=== PATIENT | female | born 1950 | race Caucasian/White ===

== ENCOUNTER 2016-12-18 13:20 | Inpatient (IN) | payer MEDICAID ==
[~2016-12-18] VITALS: Ht 167.6 cm; Wt 73.9 kg
--- NOTE | ~2016-12-18 | PR ---
[place], [place] PROGRESS NOTE NAME: TRELL TRISTAN UNIT #: [id number] ROOM: 310 DOCTOR: YARY PARTIDA BIRTHDATE: [birth year] DOS: 12/22/2016 CHIEF COMPLAINT: This morning "I had an ____ dream last night." SUMMARY OF THE VISIT: She was seen in the dining room. She is pleasant, cooperative, walking with her walker. She is alert and oriented x 3. She reports that she slept well. She did redirect easily when she was told that conversation would be inappropriate in the setting that we were in. PLAN: We will take this weekend to determine whether or not this is behavior versus psychosis. She was moved from the assisted portion of the facility into the assisted living portion and her ____ interest is in the assisted part and she has made several comments about not minding going back to the assisted part of the facility. The plan is to discharge her on Sunday or Sunday. We will continue to engage her in individual and snowden milieu and discharge her back to the least restrictive environment whenever she is psychiatrically stable. Yary Partida NP CM:ROSELINE 6 10 YARY PARTIDA 12/22/162209 interface
--- NOTE | ~2016-12-18 | WRIGHTHP ---
[place], [place] PATIENT HISTORY AND PHYSICAL EXAM NAME: TRELL TRISTAN [facility] #: [id number] UNIT #: [id number] ROOM: 310 DOCTOR: MIQUEL CASSIDY MD BIRTHDATE: [birth year] DOS: 12/18/2016 CHIEF COMPLAINT: "I have just been so depressed and I have been having nightmares." HISTORY OF PRESENT ILLNESS: This is a 66-year-old white female who resides at [facility]. The patient reports that for the last several weeks prior to admission, she was having worsening depression with worsening posttraumatic stress disorder symptoms. 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 She wakes up to start the day very fatigued and tired and has not been able to attend to her ADLs. Her appetite has fluctuated. She also was having fleeting suicidal thoughts and has done things such as purposely fall to the ground, hoping that she would hit her head and hurt herself. She has also been punching herself in the leg, hoping again she would hurt herself. The patient is admitted now to rule out organic factors to attempt to stabilize on medication and to engage in individual and snowden milieu activities. PAST MEDICAL HISTORY: Remarkable for asthma, , COPD, coronary artery disease, GERD, hyperlipidemia, hypertension, iron deficiency anemia, urinary incontinence, vitamin D deficiency and a history of a pulmonary embolus. MENTAL STATUS: The patient is alert and oriented to person, place, and time. Mood is overwhelmingly depressed with anxious overtones. She endorses multiple neurovegetative symptoms including suicidal thoughts. She denies any hypomania or kim. There are no auditory or visual hallucinations. No delusions, no paranoia. Short, intermediate, and long-term memory are relatively fully intact. DIAGNOSIS: Major depression, recurrent, severe; posttraumatic stress disorder and panic disorder. PLAN: I will go ahead and finally discontinue her Effexor in lieu of Remeron 15 mg at nighttime. I will increase her Mysoline to 50 mg in the morning and 100 mg at night to decrease some of the choreiform movements as well as to impact positively on her anxiety. I will increase her Geodon to 20 mg in the morning and 60 mg at night also to decrease her mood lability and to decrease the panic attacks and the posttraumatic stress disorder symptoms. Routine screening examination show her to have a low vitamin D level, so vitamin D 2000 international units daily was started. Additionally, her vitamin B12 is very low therapeutic. I will go ahead and treat any way with vitamin B12 injection 1000 mcg IM today. We will have her engage in individual and snowden milieu activities with the ultimate plan to return to [facility] when psychiatrically stable. [place], [place] PATIENT HISTORY AND PHYSICAL EXAM NAME: TRELL TRISTAN UNIT #: [id number] ROOM: 310 DOCTOR: MIQUEL CASSIDY MD BIRTHDATE: [birth year] MIQUEL CASSIDY MD CM:HISPHYS:PATIENT HISTORY AND PHYSICAL EXAMINATION 8 MIQUEL CASSIDY MD 12/19/16917 interface
--- NOTE | ~2016-12-18 | PR ---
[place], [place] PROGRESS NOTE [id number] UNIT #: [id number] ROOM: 310 DOCTOR: YARY PARTIDA BIRTHDATE: [birth year] DOS: 12/24/2016 CHIEF COMPLAINT: "I need to go to therapy." SUMMARY OF THE VISIT: The patient was ambulating on the unit with her walker. Her gait is steady. 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 She is alert and oriented times 3. Mood and affect are appropriate. She did not have any somatic complaints today, but does still believe that she needs to go to therapy when she returns to the retirement. PLAN: We will continue to monitor her throughout today. She has shown significant improvement since she was admitted. We will continue to try to engage her in individual and snowden milieu with the plan to discharge her back to her long-term care facility early next week, Sunday or Sunday. Yary Partida NP CM:ROSELINE [phone] YARY PARTIDA 12/24/16 1259 interface
--- NOTE | ~2016-12-18 | PR ---
[place], [place] PROGRESS NOTE [facility] [id number] UNIT #: [id number] ROOM: 310 DOCTOR: YARY PARTIDA BIRTHDATE: [birth year] DOS: 12/23/2016 CHIEF COMPLAINT: "I am doing better" this morning. SUMMARY OF THE VISIT: She was seated in the dining room, talking visiting with other patients while she was eating her breakfast. She does say that she slept really well. Her appetite is good. Her mood and affect are appropriate. One complaint that she did have was of being lightheaded and being unsteady on her feet and recommended that she have some therapy when she return to her facility, which she says she is ready to do. She is also requesting CAMRON hose and we will talk to medical about that, she said she is to wear them at the [facility]. She is having no kim or hypomania. She is not having any audio or visual hallucinations, delusions or paranoia. PLAN: Continue to monitor her over the weekend with a plan to discharge her back to her assisted living facility on either Sunday or Sunday. We will continue to try to engage her in individual and snowden milieu and discharge her when she is psychiatrically stable. Yary Partida NP CM:ROSELINE 15 YARY PARTIDA 12/23/16 1216 interface
--- NOTE | ~2016-12-18 | PR ---
[place], [place] PROGRESS NOTE NAME: TRELL TRISTAN UNIT #: [id number] ROOM: 310 DOCTOR: YARY PARTIDA BIRTHDATE: [birth year] DOS: 12/21/2016 CHIEF COMPLAINT: This morning "I fell last night." SUMMARY OF THE VISIT: She was ambulating in to the dining room with her walker. She immediately interrupted an interview with another resident to report that she had fallen last night. She said that she felt shaky last night, but feels better today. She had x-rays on her bilateral knees and those were negative. She had a urinalysis and culture and sensitivity that were negative. She states that she slept a little better last night and does overall feel better. MENTAL STATUS EXAMINATION: GENERAL: She is alert. She is oriented x 3. Her mood and affect are appropriate. PLAN: We will increase her Remeron to 22.5 to just get her a little better rest and more control over her anxiety and depression, continue to engage her in individual and snowden milieu, discharging her to the least restrictive environment when she is psychiatrically stable. Yary Partida NP CM:ROSELINE 26 YARY PARTIDA 12/21/162125 interface
--- NOTE | ~2016-12-18 | PR ---
[place], [place] PROGRESS NOTE NAME: TRELL TRISTAN UNIT #: [id number] ROOM: 310 DOCTOR: YARY PARTIDA BIRTHDATE: [birth year] DOS: 12/20/2016 CHIEF COMPLAINT: Today, the back of my legs hurt, "I need physical therapy." SUMMARY OF THE VISIT: She was seen in the dining room while she was eating her breakfast. Her appetite is good. She says that she slept well. She is alert and oriented x 3. Continues to have some issues with her behaviors through the night. Her labs were reviewed. Her vitamin D level is little low. PLAN: We will increase her Geodon from 60 mg to 80 mg at bedtime and start her on a vitamin D supplement. We will continue to engage her in individual and snowden milieu and discharge her back to her assisted living facility when she is psychiatrically stable. Yary Partida NP CM:PNTRANS [phone] YARY PARTIDA 12/20/161926 interface
--- NOTE | ~2016-12-18 | DS ---
[place], [place] DISCHARGE SUMMARY NAME: TRELL TRISTAN [facility] #: [id number] UNIT #: [id number] ROOM: 310 DOCTOR: MIQUEL CASSIDY MD BIRTHDATE: [birth year] DOS: 12/25/2016 CHIEF COMPLAINT: "I have been so depressed, I have been having nightmares." HISTORY OF PRESENT ILLNESS: This is a 66-year-old white female who resides at [facility]. The patient reported that for the last several weeks prior to admission, she was having worsening depression with posttraumatic stress disorder-type symptoms. 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 More often than not, she wakes up because of nightmares and panic attacks in the middle of the night. When she does wake up to start the day, she feels very fatigued and she has not been able to adequately attend to her ADLs. Her appetite is also fluctuated. She admitted at the time of admission to having fleeting suicidal thoughts and has done things such as purposely falling to the ground, hoping that she would hit her head and hurt herself. She is admitted now to rule out organic factors, attempt to stabilize on medication, to engage in individual and snowden milieu activities, ultimately returning back to [facility] when psychiatrically stable. PAST MEDICAL HISTORY: Remarkable for asthma, COPD, coronary artery disease, GERD, hyperlipidemia, hypertension, iron deficiency anemia, urinary incontinence, vitamin D deficiency and a history of pulmonary embolus. SUMMARY OF HOSPITAL COURSE: The patient was admitted to the unit where her Effexor was discontinued in lieu of Remeron 15 mg at bedtime. Remeron was utilized as an antidepressant because it would more adequately aid sleep and suppress nightmares and posttraumatic stress disorder symptoms. She did have a significant amount of tremor and choreiform movement, so the Mysoline was increased from 50 mg twice daily to 50 mg in the morning and 100 mg at night with adequate results. Geodon had been extremely helpful for her while at the alf to stop some of the movements as well as to improve her mood. The dose was increased from 20 mg twice daily to 20 mg in the morning and 60 mg at night and ultimately increased to 20 mg in the morning and 80 mg at night, also with good results. Upon admission, routine screening examination showed her to have a low vitamin D level, so vitamin D 2000 international units daily was started. Her B12 level was low therapeutic, so she was given a vitamin B12 injection upon admission of 1000 mcg IM. The Remeron dose was gradually increased from 15 mg at bedtime to 22.5 mg at bedtime with very good results. With this combination of medications, her nightmares discontinued. She was able to sleep adequately throughout the night, waking up more refreshed and positive. She attended to her ADLs and was able to engage readily in all forms of therapy on the unit. She voiced very positive plans for the future and was anxious to return back to her home at [facility]. She denied any suicidal thoughts, homicidal thoughts, self-injurious thoughts as well as denying any medication side effects. She had improved sufficiently to return to [facility] on 12/25/2016. MENTAL STATUS AT DISCHARGE: The patient was alert and oriented to person, place, and very approximate to time, only mild gaps were noted. Mood was strongly euthymic. Affect was much more appropriate. There were no symptoms of [place], [place] DISCHARGE SUMMARY [id number] UNIT #: [id number] ROOM: 310 DOCTOR: MIQUEL CASSIDY MD BIRTHDATE: [birth year] hypomania or kim. There were no overt auditory or visual hallucinations. No delusions, no paranoia were present. Short, intermediate, and long-term memory were intact. FINAL DIAGNOSES: Major depression, recurrent, severe, and posttraumatic stress disorder as well as panic disorder. DISPOSITION: The patient is to return to [facility]. I will follow her upon her return there. MIQUEL CASSIDY MD CM:DISCHARG [phone] MIQUEL CASSIDY MD 12/25/16 1947 interface
[2016-12-18] MEDS ORDERED: ACETAMINOPHEN500 M4 PO (14:04)
[2016-12-18] MEDS ORDERED: ADVAIR 500/501 EA INH (14:05)
[2016-12-18] MEDS ORDERED: ALBUTEROL SULF0.5 M1 INH (14:07)
[2016-12-18] MEDS ORDERED: ATENOLOL25 MG PO (14:08)
[2016-12-18] MEDS ORDERED: ATORVASTATIN CA10 M1 PO (14:10)
[2016-12-18] MEDS ORDERED: BENZONATATE200 MG PO (14:11)
[2016-12-18] MEDS ORDERED: TRIGLIDE160 MG PO (14:12)
[2016-12-18] MEDS ORDERED: FLONASE ALLERG9.9 ML NAS (14:15)
[2016-12-18] MEDS ORDERED: FERROUS SULFAT325 MG PO (14:16)
[2016-12-18] MEDS ORDERED: NEURONTIN300 MG PO (14:17)
[2016-12-18] MEDS ORDERED: GEODON20 MG PO (14:18)
[2016-12-18] MEDS ORDERED: HYDROCHLOROTH12.5 M2 PO (14:20)
[2016-12-18] MEDS ORDERED: GUAIFENESIN DM118 ML PO (14:21)
[2016-12-18] MEDS ORDERED: KLOR-CON 1010 ME1 PO (14:22)
[2016-12-18] MEDS ORDERED: CLARITIN10 MG PO (14:23)
[2016-12-18] MEDS ORDERED: SINGULAIR10 M1 PO (14:24)
[2016-12-18] MEDS ORDERED: NITROSTAT0.4 MG SL (14:26)
[2016-12-18] MEDS ORDERED: OMEPRAZOLE D/R20 MG PO (14:27)
[2016-12-18] MEDS ORDERED: DITROPAN XL5 MG PO (14:30)
[2016-12-18] MEDS ORDERED: PRIMIDONE50 MG PO (14:30)
[2016-12-18] MEDS ORDERED: PROAIR HFA8.5 GM INH (14:32)
[2016-12-18] MEDS ORDERED: TRAMADOL HCL50 MG PO (14:32)
[2016-12-18] MEDS ORDERED: EFFEXOR XR75 MG PO (14:33)
[2016-12-18] MEDS ORDERED: VITAMIN D-32000 UNIT PO (14:34)
[2016-12-18] MEDS ORDERED: COUMADIN5 M2 PO (14:35)
[2016-12-18] MEDS ORDERED: ADVAIR DISKUS 51 DSK INH (14:42)
[2016-12-18 17:00] VITALS: BP 115/69
[2016-12-18 20:07] VITALS: BP 119/75
[2016-12-18 21:07] LABS: BILIRUBIN NEGATIVE (NEGATIVE); BLOOD TRACE-LYSED (NEGATIVE); CLARITY CLEAR (CLEAR); COLOR YELLOW (YELLOW); GLUCOSE NEGATIVE (NEGATIVE); KETONE NEGATIVE (NEGATIVE); LEUKO ESTERASE TRACE (NEGATIVE); NITRITE NEGATIVE (NEGATIVE); PROTEIN NEGATIVE (NEGATIVE); SPECIFIC GRAVITY <= 1.005 (1.005-1.030); UROBILINOGEN 0.2 E.U./dl (0.2-1.0)
[2016-12-18 21:23] LABS: BACTERIA TRACE; URINE REFLEX COMMENT YES (NO)
[2016-12-18 22:00] LABS: INTERNATIONAL NORM RATIO 1.9 (2.0-3.5); PROTHROMBIN TIME 20.7 SECONDS (9.0-12.4)
[2016-12-19 06:18] LABS: HEMATOCRIT 41.7 % (37.0-47.0); LYMPH # 2.1 10*3/uL (1.3-4.4); LYMPH % 57.7 % (27.0-41.0); MEAN CELL VOLUME 94.6 fl (81.0-99.0); MEAN CORPUSCULAR HGB 31.7 pg (27.0-31.0); MEAN CORPUSCULAR HGB CONC 33.6 g/dl (33.0-37.0); MONO # 0.5 10*3/uL (0.1-1.0); MONO % 13.1 % (3.0-9.0); NEUT % 28.9 % (47.0-73.0); PLATELET COUNT AUTOMATED 198 10*3/uL (130-400); RED BLOOD COUNT 4.41 10*6/uL (4.10-5.10); RED CELL DISTRI WIDTH 12.3 % (0-14.5); WHITE BLOOD COUNT 3.6 10*3/uL (4.8-10.8)
[2016-12-19 06:20] LABS: HEMOGLOBIN A1c 5.5 % (4.8-5.6)
[2016-12-19 06:44] LABS: ALBUMIN 3.7 gm/dl (3.1-4.5); ALKALINE PHOSPHATASE 37 U/L (45-117); BILIRUBIN, TOTAL 0.3 mg/dl (0.2-1.0); BUN 14 mg/dl (7-24); CARBON DIOXIDE 30 mmol/L (21-32); CHLORIDE 104 mmol/L (98-107); CHOLESTEROL 189 mg/dL (<200); EST GLOM FILT AFRICAN AMERICAN > 60 ml/min; GLUCOSE 80 mg/dL (65-99); HDL CHOLESTEROL 73 mg/dl (40-60); LDL CHOLESTEROL 94 mg/dL (9-159); POTASSIUM 3.9 mmol/L (3.5-5.1); SGOT/AST 26 IU/L (3-35); SGPT/ALT 34 U/L (12-78); SODIUM 142 mmol/L (136-145); TOTAL PROTEIN 7.1 gm/dL (6.4-8.2); TRIGLYCERIDES 109 mg/dl (<150); VLDL CHOLESTEROL 22 mg/dL (6-40)
[2016-12-19 06:47] LABS: INTERNATIONAL NORM RATIO 1.7 (2.0-3.5)
[2016-12-19 06:48] LABS: FOLIC ACID 13.57 ng/mL (>5.38)
[2016-12-19 08:00] VITALS: BP 124/72
[2016-12-19 19:55] VITALS: BP 112/55
[2016-12-20 07:55] VITALS: BP 119/72
[2016-12-20 19:37] VITALS: BP 100/62
[2016-12-21 07:47] VITALS: BP 123/71
[2016-12-21 08:23] LABS: INTERNATIONAL NORM RATIO 1.9 (2.0-3.5); PROTHROMBIN TIME 21.2 SECONDS (9.0-12.4)
[2016-12-21 20:06] VITALS: BP 112/82
[2016-12-22 07:29] LABS: INTERNATIONAL NORM RATIO 1.9 (2.0-3.5)
[2016-12-22 08:00] VITALS: BP 134/75
[2016-12-22 19:59] VITALS: BP 129/72
[2016-12-23 07:41] LABS: INTERNATIONAL NORM RATIO 2.1 (2.0-3.5)
[2016-12-23 08:00] VITALS: BP 118/87
[2016-12-23 20:27] VITALS: BP 107/66
[2016-12-24 07:12] LABS: INTERNATIONAL NORM RATIO 2.1 (2.0-3.5); PROTHROMBIN TIME 22.9 SECONDS (9.0-12.4)
[2016-12-24 07:55] VITALS: BP 106/69
[2016-12-24 20:00] VITALS: BP 120/71
[2016-12-25] MEDS ORDERED: GEODON20 MG PO (07:56)
[2016-12-25] MEDS ORDERED: MIRTAZAPINE45 MG PO (07:56)
[2016-12-25] MEDS ORDERED: ZIPRASIDONE HCL80 M1 PO (07:56)
[2016-12-25] MEDS ORDERED: Mysoline50 MG PO ×2 (07:56)
[2016-12-25 08:49] VITALS: BP 113/79
== END 2016-12-25 14:10 | disposition home or self-care (01) | DRG 885 ==
LOC: 3N 13:20
PROVIDERS: Internal Medicine; Psychiatry & Neurology Psychiatry
DX: F33.2 Major depressive disorder, recurrent severe without psychotic features (principal); J44.9 Chronic obstructive pulmonary disease, unspecified; G25.5 Other chorea; F41.0 Panic disorder [episodic paroxysmal anxiety]; I25.10 Atherosclerotic heart disease of native coronary artery without angina pectoris; K21.9 Gastro-esophageal reflux disease without esophagitis; E78.5 Hyperlipidemia, unspecified; I10 Essential (primary) hypertension; D50.9 Iron deficiency anemia, unspecified; Z86.711 Personal history of pulmonary embolism; F43.10 Post-traumatic stress disorder, unspecified; F41.9 Anxiety disorder, unspecified; E55.9 Vitamin D deficiency, unspecified; L98.8 Other specified disorders of the skin and subcutaneous tissue; J30.2 Other seasonal allergic rhinitis; R32 Unspecified urinary incontinence; G89.29 Other chronic pain; Z88.0 Allergy status to penicillin; Z88.6 Allergy status to analgesic agent; Z88.2 Allergy status to sulfonamides; Z88.8 Allergy status to other drugs, medicaments and biological substances; Z79.899 Other long term (current) drug therapy